=== PATIENT | male | born 2000 | race African-American/Black ===

== ENCOUNTER 2023-11-15 13:08 | Emergency (ER) | payer OTHER, SELFPAY ==
[2023-11-15 15:13] LABS: Influenza A by NAA Not Detected (NotDetected); Influenza B by NAA Not Detected (NotDetected); SARS-CoV-2 NAA Rapid Test DETECTED (NotDetected)
== END 2023-11-15 17:07 | disposition home or self-care (01) ==
LOC: ERS 13:08
DX: U07.1 COVID-19 (principal); J02.9 Acute pharyngitis, unspecified
CPT/HCPCS: 87081; 87430; 99283